=== PATIENT | male | born 1965 | race American Indian/Alaskan Native ===

== ENCOUNTER 2021-07-10 11:32 | Outpatient (CLI) | payer OTHER ==
--- NOTE | 2021-07-10 13:59 | XRay Report ---
LEFT FOOT 3 VIEWS INDICATION: LEFT FOOT PAIN. COMPARISON: None. IMPRESSION: No acute osseous or soft tissue abnormality. Mild joint space narrowing is noted at t he first metatarsophalangeal joint. No erosive joint pathology. Signer Name: Rudy Fraire Jr, MD Signed: 07/10/2021 1:54 PM Workstation Name: [id number]
== END 2021-07-10 11:33 | disposition home or self-care (01) ==
LOC: XRAY 11:32
PROVIDERS: ATTEND Podiatrist
DX: M19.072 Primary osteoarthritis, left ankle and foot (principal)